=== PATIENT | female | born 1940 | race Caucasian/White ===

== ENCOUNTER 2016-10-08 10:52 | Emergency (ER) | payer OTHER ==
[~2016-10-08] VITALS: Ht 160 cm; Wt 51.5 kg
[~2016-10-08 10:52] MED LIST: ACTO35TA PO
[2016-10-08 10:54] VITALS: BP 177/105; PULSE 90; RESP 17; TEMP 97.7; O2SAT 99
--- NOTE | 2016-10-08 11:21 | PD ---
Physical Exam Date Seen by Provider: Oct 08, 2016 Time Seen by Provider: 11:20 Narrative 75 year old female presents to the emergency department for evaluation of lower abdominal pain for approximately 3 days. No nausea, vomiting, diarrhea. VSS. Patient awaiting bed placement. Data Data Last Documented VS Vital Signs Date Time Temp Pulse Resp B/P Pulse Ox O2 Delivery O2 Flow Rate FiO2 10/08/16 10:54 97.7 90 17 177/105 99 MDM Medical Record Reviewed: Yes Supervised Visit with JULIET: Kiersten Gage Oct 08, 2016 11:21
[2016-10-08] MEDS ORDERED: SODIUM CHLORIDE 0.9% FLUSH 10 ML FLUSH IV FLUSH PRN (11:30)
[2016-10-08] MEDS ORDERED: MORPHINE SULFATE 4 MG/ML INJ IV PUSH ONE (11:30)
[2016-10-08] MEDS ORDERED: DIATRIZOATE MEGLUM/DIATRIZOATE SOD 9 ML CUP ONE (11:49)
[2016-10-08 11:59] LABS: AUTOMATED NEUTROPHIL # 4.7 TH/MM3 (1.8-7.7); BASOPHIL % 0.2 % (0.0-2.0); EOSINOPHIL # 0.2 TH/MM3 (0-0.4); EOSINOPHIL % 2.5 % (0.0-4.0); HEMATOCRIT 42.4 % (35.0-46.0); HEMO FLAGS DIFF FINAL; LYMPH % 21.6 % (9.0-44.0); LYMPHOCYTE # 1.5 TH/MM3 (1.0-4.8); MEAN CELL VOLUME 92.4 FL (80.0-100.0); MEAN CORPUSCULAR HEMOGLOBIN 31.6 PG (27.0-34.0); MEAN CORPUSCULAR HGB CONC 34.2 % (32.0-36.0); MONO % 7.5 % (0.0-8.0); NEUT % 68.2 % (16.0-70.0); PLATELET COUNT 278 TH/MM3 (150-450); RED BLOOD COUNT 4.59 MIL/MM3 (4.00-5.30); RED CELL DISTRIBUTION WIDTH 13.8 % (11.6-17.2); WHITE BLOOD COUNT 6.9 TH/MM3 (4.0-11.0)
[2016-10-08 12:09] VITALS: BP 202/115; PULSE 89; RESP 15; O2SAT 98
[2016-10-08 12:16] LABS: BLOOD, URINE NEG (NEG); COMMENT (UR) CULT NOT INDICATED; CULTURE IF INDICATED CULT NOT INDICATED; GLUCOSE,URINE NEG (NEG); KETONE, URINE 40 mg/dL (NEG); MUCUS URINE FEW /lpf (OCC); NITRITE,URINE NEG (NEG); SQUAMOUS EPITHELIAL CELL URINE 1 /hpf (0-5); URINE COLOR YELLOW (YELLW/STRAW)
[2016-10-08 13:05] LABS: ALKALINE PHOSPHATASE 48 U/L (45-117); TOTAL BILIRUBIN ADULT 0.7 MG/DL (0.2-1.0)
--- NOTE | 2016-10-08 13:05 | PD ---
HPI Chief Complaint: Abdominal Pain Time Seen by Provider: 11:23 Travel History International Travel<30 days: No Contact w/Intl Traveler<30days: No Traveled to known affect area: No History of Present Illness HPI Patient is a pleasant 75-year-old female who presents the emergency department with complaint of abdominal pain. Patient has had 3 days of low abdominal pain. Describes the pain as cramping. No associated nausea, vomiting or diarrhea. No fevers or chills. She denies any urinary symptoms. Normal bowel habits. Patient has a history of ovarian cancer status post hysterectomy. She is not able to tell me whether they took her tubes or ovaries. PFSH Past Medical History Arthritis: Yes Blood Disorders: No Cancer: Yes (OVARIAN) Cardiovascular Problems: No Chemotherapy: No Diminished Hearing: No Endocrine: No Gastrointestinal Disorders: No Genitourinary: No Immune Disorder: No Implanted Vascular Access Dvce: No Musculoskeletal: Yes Neurologic: No Psychiatric: No Reproductive: No Respiratory: No Immunizations Current: Yes Radiation Therapy: No Influenza Vaccination: No Menopausal: Yes Past Surgical History Ear Surgery: Yes (MASTOID) Eye Surgery: Yes Gynecologic Surgery: Yes (HYSTERECTOMY) Hysterectomy: Yes (hx of ovarian cancer) Joint Replacement: Yes (RT HIP REPLACEMENT) Pacemaker: No Other Surgery: No Social History Alcohol Use: Yes (2/3 GLASSES WINE PER DAY) Tobacco Use: No Substance Use: No Allergies-Medications (Allergen,Severity, Reaction): Coded Allergies: Codeine (Verified Allergy, Severe, 10/08/16) Coumadin (Verified Allergy, Severe, VOMITING, 10/08/16) Percocet (Verified Allergy, Severe, 10/08/16) Reported Meds & Prescriptions Reported Meds & Active Scripts Active No Active Prescriptions or Reported Medications Review of Systems Except as stated in HPI: all other systems reviewed are Neg Physical Exam Narrative GENERAL: Thin elderly female in no acute distress SKIN: Focused skin assessment warm/dry. HEAD: Normocephalic. EYES: No scleral icterus. No injection or drainage. ENT: Mucous membranes pink and moist. NECK: Supple CARDIOVASCULAR: Regular rate and rhythm. No murmur appreciated. RESPIRATORY: No accessory muscle use. Clear to auscultation. Breath sounds equal bilaterally. GASTROINTESTINAL: Abdomen soft, mild low abdominal tenderness to palpation without rebound or guarding MUSCULOSKELETAL: Normal gait NEUROLOGICAL: Awake and alert. Normal speech. PSYCHIATRIC: Appropriate mood and affect; insight and judgment normal. Data Data Last Documented VS Vital Signs Date Time Temp Pulse Resp B/P Pulse Ox O2 Delivery O2 Flow Rate FiO2 10/08/16 12:09 89 15 202/115 98 Room Air 10/08/16 10:54 97.7 Orders Complete Blood Count With Diff (10/08/16 11:30) Comprehensive Metabolic Panel (10/08/16 11:30) Lipase (10/08/16 11:30) Urinalysis - C+S If Indicated (10/08/16 11:30) Ct Abd/Pel W Iv Contrast(Rout) (10/08/16 11:30) Iv Access Insert/Monitor (10/08/16 11:30) Ecg Monitoring (10/08/16 11:30) Oximetry (10/08/16 11:30) Morphine Inj (Morphine Inj) (10/08/16 11:30) Sodium Chloride 0.9% Flush (Ns Flush) (10/08/16 11:30) Oral Contrast - Adult (10/08/16 11:34) Diatrizoate Liq ( [place]astro[place] Liq) (10/08/16 11:49) Iohexol 350 Inj (Omnipaque 350 Inj) (10/08/16 14:14) Labs Laboratory Tests Test 10/08/16 10/08/16 10/08/16 11:43 11:52 12:10 White Blood Count 6.9 TH/MM3 Red Blood Count 4.59 MIL/MM3 Hemoglobin 14.5 GM/DL Hematocrit 42.4 % Mean Corpuscular Volume 92.4 FL Mean Corpuscular Hemoglobin 31.6 PG Mean Corpuscular Hemoglobin 34.2 % Concent Red Cell Distribution Width 13.8 % Platelet Count 278 TH/MM3 Mean Platelet Volume 8.8 FL Neutrophils (%) (Auto) 68.2 % Lymphocytes (%) (Auto) 21.6 % Monocytes (%) (Auto) 7.5 % Eosinophils (%) (Auto) 2.5 % Basophils (%) (Auto) 0.2 % Neutrophils # (Auto) 4.7 TH/MM3 Lymphocytes # (Auto) 1.5 TH/MM3 Monocytes # (Auto) 0.5 TH/MM3 Eosinophils # (Auto) 0.2 TH/MM3 Basophils # (Auto) 0.0 TH/MM3 CBC Comment DIFF FINAL Differential Comment Urine Color YELLOW Urine Turbidity CLEAR Urine pH 6.0 Urine Specific [place] 1.013 Urine Protein NEG mg/dL Urine Glucose (UA) NEG mg/dL Urine Ketones 40 mg/dL Urine Occult Blood NEG Urine Nitrite NEG Urine Bilirubin NEG Urine Urobilinogen LESS THAN 2.0 MG/DL Urine Leukocyte Esterase NEG Urine RBC 2 /hpf Urine WBC 1 /hpf Urine Squamous Epithelial 1 /hpf Cells Urine Mucus FEW /lpf Microscopic Urinalysis Comment CULT NOT INDICATED Sodium Level 136 MEQ/L Potassium Level 5.4 MEQ/L Chloride Level 105 MEQ/L Carbon Dioxide Level 23.9 MEQ/L Anion Gap 7 MEQ/L Blood Urea Nitrogen 10 MG/DL Creatinine 0.76 MG/DL Estimat Glomerular Filtration 74 ML/MIN Rate Random Glucose 97 MG/DL Calcium Level 8.8 MG/DL Total Bilirubin 0.7 MG/DL Aspartate Amino Transf 47 U/L (AST/SGOT) Alanine Aminotransferase 22 U/L (ALT/SGPT) Alkaline Phosphatase 48 U/L Total Protein 7.7 GM/DL Albumin 4.0 GM/DL Lipase 157 U/L [facility] Medical Decision Making Medical Screen Exam Complete: Yes Emergency Medical Condition: Yes Medical Record Reviewed: Yes Differential Diagnosis 75-year-old female with history of ovarian cancer status post hysterectomy, unknown salpingectomy or oophorectomy, here with low abdominal pain 3 days. Differential includes UTI, appendicitis, diverticulitis, recurrent ovarian cancer, bowel obstruction. Narrative Course Patient placed on monitor, IV established and blood obtained. Given morphine for pain. CBC, CMP, lipase, urinalysis were obtained and unremarkable. CT abdomen and pelvis showed no acute abnormalities. Patient reassured and discharged home. Diagnosis Primary Impression: Abdominal pain Qualified Code: R10.30 - Lower abdominal pain Referrals: Primary Care Physician as needed Patient Instructions: Abdominal Pain (ED), General Instructions Additional Instructions: Tylenol, ibuprofen as needed for pain. Follow-up with primary care provider symptoms persist and return to the ER for the warning signs discussed. Med/Other Pt SpecificInfo: No Change to Meds Scripts No Active Prescriptions or Reported Meds Disposition: DISCHARGE HOME Condition: Stable Yuly Perdomo MD Oct 08, 2016 13:05
[2016-10-08 13:14] LABS: ALT (GPT) 22 U/L (10-53); ANION GAP 7 MEQ/L (5-15); AST (GOT) 47 U/L (15-37); BICARBONATE 23.9 MEQ/L (21.0-32.0); BLOOD UREA NITROGEN 10 MG/DL (7-18); CHLORIDE 105 MEQ/L (98-107); GLOMERULAR FILTRATION RATE 74 ML/MIN (>89); POTASSIUM 5.4 MEQ/L (3.5-5.1); SODIUM (NA) 136 MEQ/L (136-145)
[2016-10-08] MEDS ORDERED: IOHEXOL 350 MG/ML 10 ML VIAL (for RAD DIAG) IV ONE (14:14)
--- NOTE | 2016-10-08 14:42 | RADRPT ---
EXAM DATE/TIME: 10/08/2016 13:59 [facility] COMPARISON: CT ABDOMEN & PELVIS W CONTRAST, June 12, 2011, 15:20. INDICATIONS : Right lower quadrant pain. IV CONTRAST: 80 cc Omnipaque 350 (iohexol) IV ORAL CONTRAST: Prescribed oral contrast ingested. RADIATION DOSE: 7.31 CTDIvol (mGy) MEDICAL HISTORY : Ovarian cancer. SURGICAL HISTORY : Hysterectomy. Right hip replacement. ENCOUNTER: Initial ACUITY: 1 day PAIN SCALE: 6/10 LOCATION: Right lower quadrant TECHNIQUE: Volumetric scanning of the abdomen and pelvis was performed. Using automated exposure control and ad justment of the mA and/or kV according to patient size, radiation dose was kept as low as reasonably achievable to obtain optimal diagnostic quality images. FINDINGS: The visualized portion of lung bases demonstrates tubular bronchiectasis involving the right lower lo be. The appearance of the liver, spleen, pancreas, adrenal glands and kidneys is within normal limits. The abdominal aorta is intact. There is no retroperitoneal adenopathy. No free air or free fluid is e vident. The visualized loops of small and large bowel in the upper abdomen are unremarkable. Oral contrast has passed through the small bowel and is present within the colon. No findings to marvin vonnie bowel obstruction are evident. There is no free fluid within the pelvis. No iliac or inguinal adenopathy is a very identified. The visualized bony structures demonstrate degenerative changes but are otherwise intact. CONCLUSION: 1. Tubular bronchiectasis in the right lower lobe. 2. No findings to indicate bowel obstruction identified. No definite findings to explain the patient' s right lower quadrant pain is evident. Judson Matias MD on October 08, 2016 at 14:37 Board Certified Radiologist. This report was verified electronically.
[2016-10-08 14:53] VITALS: BP 153/85
[2016-11-22] MEDS ORDERED: CALC1TAB87 PO (11:59)
[2016-11-22] MEDS ORDERED: DENO60P SQ (12:24)
== END 2016-10-08 15:05 | disposition home or self-care (01) ==
LOC: NEPD 10:52
DX: R10.30 Lower abdominal pain, unspecified (principal); Z85.43 Personal history of malignant neoplasm of ovary; Z90.710 Acquired absence of both cervix and uterus
CPT/HCPCS: 74177; 80053; 81001; 83690; 85025; 99284; Q9963; Q9967; J2270